=== PATIENT | female | born 1950 | race Caucasian/White ===

== ENCOUNTER 2016-10-30 12:48 | Emergency (ER) | payer MEDICARE, BC ==
[~2016-10-30] VITALS: Ht 175.3 cm; Wt 104.1 kg
[2016-10-30 12:59] VITALS: BP 137/80
== END 2016-10-30 15:09 | disposition home or self-care (01) ==
LOC: ED 14:50
DX: S80.02XA Contusion of left knee, initial encounter (principal); S46.811A Strain of other muscles, fascia and tendons at shoulder and upper arm level, right arm, initial encounter; V49.59XA Passenger injured in collision with other motor vehicles in traffic accident, initial encounter; Y99.8 Other external cause status; Y93.89 Activity, other specified; Y92.481 Parking lot as the place of occurrence of the external cause
CPT/HCPCS: 99284